=== PATIENT | female | born 1955 | race Caucasian/White ===

== ENCOUNTER 2017-03-04 19:16 | Inpatient (IN) ==
[2017-03-04] MEDS ORDERED: ONDANSETRON 4 MG/2 ML VIAL IV STA (19:37)
[2017-03-04] MEDS ORDERED: ALBUTEROL NEB SOLN 5 MG/ML 20 ML/BOTTLE CONT NEB STA (19:37)
[2017-03-04] MEDS ORDERED: SODIUM CHLORIDE 0.9% 2,000 ML IV STA (19:37)
[2017-03-04] MEDS ORDERED: CALCIUM CHLORIDE 1,000 MG/10 ML SYRINGE IV STA (19:37)
--- NOTE | 2017-03-04 19:45 | Emergency Department Note ---
Arrival - Arrival Chief Complaint: Weakness ED Nursing Triage Note: Pt arrives via ems from [facility] for further eval of dehydration and elevated K+ level. Pt states that she had not feeling well for three days. Denies any pain or fever. Pt denies any complaints of pain at time of triage. Pt was treated at [facility] and given Kayexalate 30 Gm po prior to leaving. Mode of Arrival: Stretcher Limitations: Altered Mental Status Source: Old Records Reviewed Time Seen by Provider: 03/04/17 19:37 - History of Present Illness HPI Narrative: This 61-year-old white female presents on referral from [place] where she was found to be dehydrated and azotemic with elevated creatinine and potassium as well as significant disorientation. Currently the patient is oriented only to person and place. She cannot give any cognizant history. By old records she does have a history of lung cancer with a right lung transplant as well as various other GI diseases including diverticulosis, pancreatitis, and GERD. Currently she appears in no acute medical distress. Onset (ago): day(s) (Patient presents several days post onset of symptoms.) Date of Last Menstrual Period: hyster Allergies/Adverse Reactions: Allergies Allergy/AdvReac Type Severity Reaction Status Date / Time Buspirone [From BuSpar] Allergy HIVES Verified 09/21/15 11:21 carisoprodol [From Soma] Allergy HIVES Verified 09/21/15 11:21 metoclopramide [From Reglan] Allergy HIVES Verified 09/21/15 11:21 morphine Allergy HIVES Verified 09/21/15 11:21 nalbuphine [From Nubain] Allergy HIVES Verified 09/21/15 11:21 Sulfa (Sulfonamide Allergy Swelling Verified 09/21/15 11:21 Antibiotics) of Lip/Tongue/Throat sumatriptan [From Imitrex] Allergy SHORTNESS Verified 09/21/15 11:21 OF BREATH vancomycin Allergy Unknown/Unable Verified 09/21/15 11:21 to obtain Home Medications: Home Medications Medication Instructions Recorded Confirmed Type Alendronate [Fosamax] 70 mg PO Q7DAY@0730 09/21/15 03/04/17 History Budesonide/Formoterol 160-4.5 2 puff INH BID 09/21/15 03/04/17 History [Symbicort 160-4.5] Esomeprazole Magnesium [Nexium] 40 mg PO DAILY 09/21/15 03/04/17 History LORazepam TAB [Ativan Tab] 2 mg PO DAILY 09/21/15 03/04/17 History Lisinopril 20 mg PO DAILY 09/21/15 03/04/17 History Pravastatin [Pravachol] 40 mg PO DAILY 09/21/15 03/04/17 History Tacrolimus Cap [Prograf Cap] 2 mg PO BID 09/21/15 03/04/17 History azaTHIOprine [Imuran] 100 mg PO DAILY 09/21/15 03/04/17 History predniSONE TAB [PredniSONE] 5 mg PO DAILY 09/22/15 03/04/17 History Amoxicillin/Clav Tab [Augmentin 500 mg PO BID #14 tablet 09/23/15 03/04/17 Rx Tab] Fluconazole Tab [Diflucan Tab] 100 mg PO DAILY #14 tablet 09/30/15 03/04/17 Rx Nystatin [Nystatin Oral Susp] 200,000 unit SWISH/SWAL QID #200 ml 09/30/1503/04 Rx Potassium Chloride Cap/Tab [K Dur] 20 meq PO DAILY #7 tablet 09/30/15 03/04/17 Rx Review of System - Review of System ROS unobtainable: due to mental status Medical,Surgical,& Family Hx - Medical History Cardio: History of: Hypertension HEENT: History of: HEENT Problems (sinus problems) Endocrine: History of: Dyslipidemia Respiratory: History of: Lung Cancer (right side), Respiratory Problems (right lung transplant) Gastrointestinal: History of: Diverticulitis/ Diverticulosis, GERD, Pancreatitis , Polyps, GI Problems (recent pancreatitis, also pancreatitis) Other: History of: Miscellaneous Medical Problems (melanoma LLE) - Surgical History Abdominal Surgeries: Surgical HX of: Cholecystectomy Reproductive Surgeries: Surgical HX of;: Hysterectomy - Family History Family History: Reports;: Family Cancer (mother), Family Hypertension (father, mother), Family Stroke (father) - Social History Smoking Status: Never smoker Frequency of Alcohol Use: None Type of Drug Use: None Exam Physical Examination: GENERAL: Well developed, well nourished elderly white female in no acute distress. HEENT: Normocephalic. No trauma. Moist mucous membranes. EOMI. PERRLA. ENT NML NECK: Supple. No adenopathy. CARDIAC: Regular. No murmurs. Heart rate 92 CHEST: Clear to auscultation. No respiratory distress. O2 sat 100% ABDOMEN: Soft. Nontender. Active bowel sounds. EXTREMITIES: No trauma. Normal ROM. No pedal edema. SKIN: No diaphoresis. No rash. NEURO: Alert. Motor, sensory, vibratory intact. Oriented only to person and place. No focal deficits. Vital Signs: Vital Signs Temperature 98.6 F 03/04/17 19:16 Pulse Rate 92 H 03/04/17 19:16 Respiratory Rate 18 03/04/17 19:16 Blood Pressure 112/82 03/04/17 19:16 O2 Sat by Pulse Oximetry 100 03/04/17 19:16 Course - Consultations Consultation #1: Discussed with hospitalist service who will admit for further evaluation treatment. Results - Labs Labs: Laboratory per [place]: White blood count 7000, hematocrit 39.6, BUN 59, creatinine 3.2, potassium 6.1, bicarbonate 22, troponin 0.019, urinalysis consistent with early cystitis - Impressions EKG: Per [place] sinus rhythm at 83 with normal AK interval and QRS duration. Nonspecific ST changes without marked T-wave peaking. No acute injury pattern noted. - Diagnostic Findings Procedure: CT: image reviewed by me, report reviewed by me (CT head per [place] is a normal head CT) Disposition Clinical Impression: Altered mental status, Acute renal insufficiency, Hyperkalemia Disposition: Still a Patient Time of Disposition: 19:47
[2017-03-04] MEDS ORDERED: CALCIUM CHLORIDE 1,000 MG/10 ML SYRINGE IV ONE (19:47)
[2017-03-04] MEDS ORDERED: ONDANSETRON 4 MG/2 ML VIAL ONE (19:47)
--- NOTE | 2017-03-04 20:19 | Hospitalist History & Physical ---
Assessment and Plan (1) Acute kidney injury Status: Acute (2) Hyperkalemia Status: Acute (3) Cirrhosis Status: Acute (4) Status post lung transplantation Status: Acute Assessment and plan: Our plan for this patient is hydration. We need to continue her antirejection drugs as appropriate. She was supposed to see Dr. Archuleta this week regarding her liver. Her mental status could be associated with the liver or could be associated with the acute kidney injury. We need to follow-up on labs in the morning and adjust plans appropriate. We will consult Dr. Archuleta History of Present Illness Chief complaint: Transfer from [place] History of present illness: Ms. Hale is a 61 year old female with past medical history significant for alpha-1 deficiency, lung transplant, pancreatitis, diverticulitis, cirrhosis and history of carcinoma who was in her normal state of health until the past 3- 4 days. Patient had a hernia repair at [facility] recently. It was noted that that time she was developing ascites. I recommended that she follow up with the GI doctor locally. She followed up with Dr. Archuleta and he put her on Aldactone 50 mg p.o. twice daily and Lasix 20 mg daily. She started taking these medications on February 13, 2017. Patient had been doing just fine on this regimen. But for the past 3-4 days she had been complaining about dizziness and off- balance. She was getting forgetful. She went to [place] and was found to be in dehydration with acute kidney injury. Patient really has a hard time eating secondary to bad indigestion and reactions to food. Daughter thought she was drinking enough fluid but apparently not. I was consulted to admit the patient to the emergency room. Home Medications Medication Instructions Recorded Confirmed Type Alendronate [Fosamax] 70 mg PO Q7DAY@0709/21/15 03/04/17 History Budesonide/Formoterol 160-4.5 2 puff INH BID 09/21/15 03/04/17 History [Symbicort 160-4.5] Esomeprazole Magnesium [Nexium] 40 mg PO DAILY 09/21/15 03/04/17 History LORazepam TAB [Ativan Tab] 2 mg PO DAILY 09/21/15 03/04/17 History Lisinopril 20 mg PO DAILY 09/21/15 03/04/17 History Pravastatin [Pravachol] 40 mg PO DAILY 09/21/15 03/04/17 History Tacrolimus Cap [Prograf Cap] 2 mg PO BID 09/21/15 03/04/17 History azaTHIOprine [Imuran] 100 mg PO DAILY 09/21/15 03/04/17 History predniSONE TAB [PredniSONE] 5 mg PO DAILY 09/22/15 03/04/17 History Amoxicillin/Clav Tab [Augmentin 500 mg PO BID #14 tablet 09/23/15 03/04/17 Rx Tab] Fluconazole Tab [Diflucan Tab] 100 mg PO DAILY #14 tablet 09/30/15 03/04/17 Rx Nystatin [Nystatin Oral Susp] 200,000 unit SWISH/SWAL QID #200 ml 09/30/1503/04 Rx Potassium Chloride Cap/Tab [K Dur] 20 meq PO DAILY #7 tablet 09/30/15 03/04/17 Rx Allergies Allergy/AdvReac Type Severity Reaction Status Date / Time Buspirone [From BuSpar] Allergy HIVES Verified 09/21/15 11:21 carisoprodol [From Soma] Allergy HIVES Verified 09/21/15 11:21 metoclopramide [From Reglan] Allergy HIVES Verified 09/21/15 11:21 morphine Allergy HIVES Verified 09/21/15 11:21 nalbuphine [From Nubain] Allergy HIVES Verified 09/21/15 11:21 ondansetron Allergy RASH Verified 03/04/17 19:54 [From Zofran (as hydrochloride)] Sulfa (Sulfonamide Allergy Swelling Verified 09/21/15 11:21 Antibiotics) of Lip/Tongue/Throat sumatriptan [From Imitrex] Allergy SHORTNESS Verified 09/21/15 11:21 OF BREATH vancomycin Allergy Unknown/Unable Verified 09/21/15 11:21 to obtain Medical,Surgical,& Family Hx - Medical History Cardio: History of: Hypertension HEENT: History of: HEENT Problems (sinus problems) Endocrine: History of: Dyslipidemia Respiratory: History of: Lung Cancer (right side), Respiratory Problems (right lung transplant) Gastrointestinal: History of: Diverticulitis/ Diverticulosis, GERD, Pancreatitis , Polyps, GI Problems (recent pancreatitis, also pancreatitis) Other: History of: Miscellaneous Medical Problems (melanoma LLE) - Surgical History Abdominal Surgeries: Surgical HX of: Cholecystectomy Reproductive Surgeries: Surgical HX of;: Hysterectomy Additional Surgical History: Lung transplant - Family History Family History: Reports;: Family Cancer (mother), Family Hypertension (father, mother), Family Stroke (father) - Social History Smoking Status: Never smoker Frequency of Alcohol Use: None Type of Drug Use: None ROS unobtainable: due to delirium Exam - Constitutional Vitals: Period Temp Pulse Resp BP Sys/Aguilera Pulse Ox Last 24 Hr 98.6 F-98.6 F 86-92 18-27 96-112/73-82 98-100 General appearance: under weight - Head Head exam: Present: normal inspection - Eye Eye exam: Present: EOMI Pupils: Present: RUKHSANA - ENT ENT exam: Present: normal exam - Neck Neck exam: Present: normal inspection - Respiratory Respiratory exam: Present: clear to auscultation bilaterally - Cardiovascular Cardiovascular exam: Present: regular rate and rhythm - GI/Abdominal GI/Abdominal exam: Present: normal bowel sounds - Extremities Exam Extremities exam: Present: normal inspection - Back Exam Back exam: Present: normal inspection - Neurological Exam Neurological exam: Present: alert, other (Patient is only alert to person and place) - Psychiatric Psychiatric exam: Present: normal affect - Skin Skin exam: Present: normal color Results - Labs Labs: Labs from outside facility glucose 199 BUN 59 serum creatinine 3.2 calcium 9.5 serum sodium 141 potassium 6.1 chloride 107 bicarb 22 CK 40 total protein 7.3 albumin 4.0 total bili 1.3 alk phos 114 ALT 20 AST 23 MMB 2.8 myoglobin 80 magnesium 1.9 leukocytes 1+ trace bacteria CT scan of head was negative
[2017-03-04] MEDS ORDERED: ACETAMINOPHEN 325 MG TABLET PO PRN (20:25)
[2017-03-04] MEDS ORDERED: GLUCAGON 1 MG VIAL IM PRN ×2 (20:25→20:30)
[2017-03-04] MEDS ORDERED: DEXTROSE 50% 25 GM/50 ML VIAL IV PRN ×2 (20:25→20:30)
[2017-03-04] MEDS: AMOXICILLIN/CLAV 500 MG TABLET PO SCH (23:34)
[2017-03-04] MEDS: INSULIN REGULAR 100 UNIT/ML SUBCUT SCH (23:35)
[2017-03-04] MEDS: BUDESONIDE/FORMOTEROL 160-4.5 INHALER 6 GM INH SCH (23:35)
[2017-03-04] MEDS: NYSTATIN 500,000 UNIT/5 ML UDCUP SWISH/SWAL SCH (23:35)
[2017-03-05 06:51] LABS: Basophils % 0.3 % (0.0-0.8); Eosinophils # 0.1 10*3/uL (0.0-0.87); Hematocrit 29.8 VOL% (35.7-47.0); Immature Granulocytes % 0.5 %; Immature Granulocytes Absolute 0.03 #; Lymphocytes # 1.4 10*3/uL (1.4-4.0); Lymphocytes % 21.4 % (21.3-54.2); Mean Corpuscular HGB Conc 33.6 GM/DL (32-36); Mean Corpuscular Hemoglobin 30 PG (27-34); Mean Corpuscular Volume 89.5 FL (87-102); Monocytes # 0.5 10*3/uL (0.11-0.8); Monocytes % 7.6 % (1.7-12.7); Neutrophils # 4.4 10*3/uL (1.4-7.4); Neutrophils % 68.2 % (38.7-73.9); Red Blood Count 3.33 MC/CUMM (3.8-5.5); Red Cell Distribution Width 14.2 % (9.3-17.3); White Blood Count 6.4 T/CUMM (4-12)
[2017-03-05 07:01] LABS: Platelet Count 85 T/CUMM (130-400)
[2017-03-05 07:11] LABS: Hypochromasia Slight; Ovalocytes Slight; Platelet Estimate Decreased
[2017-03-05 07:12] LABS: Macrocytosis Slight
[2017-03-05 07:47] LABS: Albumin 2.9 G/DL (3.4-5.0); Bilirubin,Total 1.1 MG/DL (0.2-1.0); Calcium 8.1 MG/DL (8.5-10.1); Osmolality,Calculated 300.1 MOS/KG (273-304); Potassium 4.4 MMOL/L (3.5-5.1); Total Protein 5.4 G/DL (6.4-8.3)
--- NOTE | 2017-03-05 08:13 | Physician Query Form ---
CLICK EDIT DOCUMENT TO SELECT QUERY ANSWER --> OK --> SIGN Opal Borden RN, CCDS Certified Clinical Retort Pre Cooker W) [phone] (f) [phone] [email or web address] PROVIDERS: Make your selection(s) from the choices in EACH section by typing an "x" and enter comments in the comment section. Please use your independent medical judgment in providing your response. This request does not imply that any particular answer is desired or expected. CLINICAL INDICATORS: (Providers should not edit this section) The medical record indicates that the patient was admitted with DAWIT, AMS, "getting forgetful", in ER "Currently the patient is oriented only to person and place", "cannot give any cognizant history" AND the patient had a negative CT of the head done. ACUITY: ( x) Acute ( ) Acute on Chronic ( ) Chronic ( ) Clinically unable to determine NATURE: ( x) Delirium due to general medical condition ( ) Dementia ( ) Encephalopathy ( ) Metabolic encephalopathy ( ) Unconscious ( ) Transient level of awareness ( ) Comatose ( ) Locked-in State ( ) Persistent Vegetative State ( ) Other, please specify: ( ) Clinically unable to determine Please indicate the underlying cause of the altered mental status (CHECK ALL THAT APPLY): ( ) Baseline dementia ( ) Alzheimer's disease ( ) Parkinson's disease ( ) Lewy body dementia ( ) Acute stroke ( ) Late effect of stroke ( ) Reactive (from emotional stress, psychological trauma) ( ) Due to narcotics/other drugs ( ) Post procedural delirium ( ) Transient ischemic attack ( ) Generalized cerebral edema ( ) Normal pressure hydrocephalus ( ) Psychiatric illness ( ) Other, please specify: ( ) Clinically unable to determine Please indicate if there is an infection, sepsis, dehydration or specific organ failure that is causing the dementia. Be specific with clarifying the relationship between that process and the mental status change. COMMENTS: PLEASE ALSO DOCUMENT RESPONSE IN PROGRESS NOTES AND/OR DISCHARGE SUMMARY Use of terms such as suspected, likely, or probable (associated with a specific diagnosis that is being evaluated, monitored, or treated as if it exists) are acceptable and can be restated in the discharge summary if not ruled out. MTDD
--- NOTE | 2017-03-05 08:57 | Gastrointestinal Consult Note ---
<Sofy Dawson - Last Filed: 03/05/17 13:09> Assessment and Plan (1) Elevated liver enzymes Status: Acute Assessment and plan: 03/05-Hx of lung transplant with alpha 1 deficiency with recent findings of ascites and questionable liver disease. Elevated bilirubin at 1.1. Hx of biliary pancreatitis in the past with dilated pancreatic duct in past w/o repeat MRI/CT noted. Recent paracentesis with 1 liter removed during hernia repair. Obtain hepatitis panel, ammonia level, liver biopsy in the morning. Plan and addendum to follow by Dr Archuleta. Current Visit: Yes History of Present Illness Chief complaint: Altered mental status History of present illness: Ms. Hale is a 61 year old female who presented to the hospital with altered mental status. Patient's daughter is at bedside and provides history due to patient is a poor historian at this time although she is more alert and oriented at this time than initial onset. Information also obtained from chart review. Patient was in her usual state of health until approximately 3 days ago. Patient's daughter states that Saturday she was visiting with her her mother and knows during conversation that she was somewhat disoriented. She also noticed that she was somewhat unbalanced and having complaints of dizziness. She states that her mother could not remember specific things such as birthdays. She did not feel well through the weekend with some reports of weakness so on yesterday patient's daughter contacted Dr. Archuleta's office regarding her Aldactone after reading side effects of confusion. They were instructed to hold the medication and follow with Dr. Archuleta on tomorrow. Patient became progressively more confused therefore her daughter brought her in for further evaluation. Patient has a history of lung cancer with right lung transplant as well as alpha 1 deficiency. She recently had a hernia repair at [facility] in January of this year which patient's daughter states they also removed a liter of ascitic fluid at that time. They did not began liver workup following these findings per patient's daughter and was told to return in April of this year for follow-up. Patient saw Dr. Archuleta recently and had an initial workup began. Pt has a history of Hepatitis B in 1989. She has no prior history of known liver disease. She has no history of alcohol or tobacco use. Patient's daughter denies any recent weight loss with her mother. She underwent a cholecystectomy in 2014 after presenting with biliary pancreatitis. She was found on admission to have dehydration as well as hyperkalemia with potassium of 6.7 at [facility] prior to transfer. She was given Kayexalate and dextrose and transferred to our facility. Potassium is now down to 4.4. LFTs are unremarkable other than a mildly elevated bilirubin at 1.1. She is afebrile. Denies any recent weight loss. Denies any nausea, vomiting or abdominal pain. Patient is noted to have orders for sliding scale insulin and on a diabetic diet however patient's daughter denies history of diabetes in her mother. Home Medications Medication Instructions Recorded Confirmed Type Alendronate [Fosamax] 70 mg PO Q7DAY@0730 09/21/15 03/04/17 History Esomeprazole Magnesium [Nexium] 40 mg PO DAILY 09/21/15 03/04/17 History LORazepam TAB [Ativan Tab] 1 mg PO TID 09/21/15 03/04/17 History Lisinopril 20 mg PO DAILY 09/21/15 03/04/17 History Pravastatin [Pravachol] 40 mg PO DAILY 09/21/15 03/04/17 History Tacrolimus Cap [Prograf Cap] 1 mg PO DAILY W/BREAKFAST 09/21/15 03/04/17 History azaTHIOprine [Imuran] 25 mg PO BEDTIME 09/21/15 03/04/17 History predniSONE TAB [PredniSONE] 5 mg PO DAILY 09/22/15 03/04/17 History Budesonide/Formoterol 160-4.5 2 puffs INH BID 03/04/17 03/04/17 History [Symbicort 160-4.5] Tacrolimus [Prograf] 0.5 mg PO BEDTIME 03/04/17 03/04/17 History Allergies Allergy/AdvReac Type Severity Reaction Status Date / Time Buspirone [From BuSpar] Allergy HIVES Verified 09/21/15 11:21 carisoprodol [From Soma] Allergy HIVES Verified 09/21/15 11:21 metoclopramide [From Reglan] Allergy HIVES Verified 09/21/15 11:21 morphine Allergy HIVES Verified 09/21/15 11:21 nalbuphine [From Nubain] Allergy HIVES Verified 09/21/15 11:21 ondansetron Allergy RASH Verified 03/04/17 19:54 [From Zofran (as hydrochloride)] Sulfa (Sulfonamide Allergy Swelling Verified 09/21/15 11:21 Antibiotics) of Lip/Tongue/Throat sumatriptan [From Imitrex] Allergy SHORTNESS Verified 09/21/15 11:21 OF BREATH vancomycin Allergy Unknown/Unable Verified 09/21/15 11:21 to obtain Medical,Surgical,& Family Hx - Medical History Cardio: History of: Hypertension Psychological: No history of: Anxiety Disorders, ADHD, Behavior Problems, Bipolar Disorder, Depression, Previous Suicide Attempt, Psychiatric/Substance Abuse Tx, Schizophrenia, Violent Behavior, Psychiatric Problems HEENT: History of: HEENT Problems (sinus problems) Endocrine: History of: Dyslipidemia Respiratory: History of: Lung Cancer (right side), Respiratory Problems (right lung transplant) Gastrointestinal: History of: Diverticulitis/ Diverticulosis, GERD, Pancreatitis , Polyps, GI Problems (recent pancreatitis, also diverticulitis) Other: History of: Skin Problems (basal cell carcinoma under left eye and back of neck,), Miscellaneous Medical Problems (melanoma LLE) - Surgical History Abdominal Surgeries: Surgical HX of: Cholecystectomy Reproductive Surgeries: Surgical HX of;: Breast Surgery (right breast biopsy), Hysterectomy, Tubal Ligation - Family History Family History: Reports;: Family Cancer (mother), Family Hypertension (father, mother), Family Stroke (father) - Social History Smoking Status: Never smoker Frequency of Alcohol Use: None Type of Drug Use: None ROS unobtainable: due to mental status Exam - Constitutional Vitals: Period Temp Pulse Resp BP Sys/Aguilera Pulse Ox Last 24 Hr 97.7 F-98.6 F 93-101 18-20 87-101/51-80 98-99 General appearance: normal weight, no acute distress - Head Head exam: Present: normal inspection, normocephalic - Eye Eye exam: Present: other (Lids and conjunctive are unremarkable). Absent: scleral icterus - ENT ENT exam: Present: normal exam, normal oropharynx - Neck Neck exam: Present: normal inspection - Respiratory Respiratory exam: Present: clear to auscultation bilaterally. Absent: rales, rhonchi, wheezes - Cardiovascular Cardiovascular exam: Present: regular rate and rhythm. Absent: diastolic murmur , JVD, systolic murmur - GI/Abdominal GI/Abdominal exam: Present: normal bowel sounds, soft. Absent: ascites, distended, mass, organomegaly, tenderness - Extremities Exam Extremities exam: Present: normal inspection, full ROM - Back Exam Back exam: Present: normal inspection - Neurological Exam Neurological exam: Present: alert, oriented X3 - Psychiatric Psychiatric exam: Present: normal affect, normal mood - Skin Skin exam: Present: normal color, warm, dry Results - Labs CBC & BMP: 03/05/17 05:25 03/05/17 05:25 Lab Results: I have reviewed the past 24 hour labs <Aaron Archuleta - Last Filed: 03/05/17 22:48> History of Present Illness History of present illness: Ms. Hale is a 61 year old female Exam - Constitutional Vitals: Period Temp Pulse Resp BP Sys/Aguilera Pulse Ox Last 24 Hr 96.4 F-98.6 F 97-128 18-20 71-101/47-72 96-99 Results - Labs CBC & BMP: 03/05/17 05:25 03/05/17 05:25
[2017-03-05] MEDS ORDERED: azaTHIOprine 50 MG TABLET PO SCH ×2 (09:00)
[2017-03-05] MEDS ORDERED: LORazepam 1 MG TABLET PO SCH (09:00)
[2017-03-05] MEDS ORDERED: PANTOPRAZOLE 40 MG TABLET PO SCH (09:00)
[2017-03-05] MEDS ORDERED: PRAVASTATIN 40 MG TABLET PO SCH (09:00)
[2017-03-05] MEDS ORDERED: predniSONE 5 MG TABLET PO SCH (09:00)
--- NOTE | 2017-03-05 09:25 | Ultrasound Report ---
US renal Bilateral Indication: Increased creatinine. Comparison: CT abdomen pelvis dated September 28, 2015. Technique: Multiple longitudinal and transverse real-time sonographic images of the kidneys are obtained. Findings: The right kidney measures 8.2 cm, and the left kidney measures 8.3 cm. There is no evidence of hydronephrosis. Renal parenchyma is echogenic bilaterally consistent with medical renal disease. Cortical thinning noted bilaterally. 1.2 cm cyst within the superior pole of the left kidney. IMPRESSION: Medical renal disease/renal atrophy without evidence of hydronephrosis. Small left renal cyst. PROCEDURE INTERPRETED AT [facility] DEPARTMENT OF RADIOLOGY Final Report Signed by: Dr Demarcus Lara
[2017-03-05] MEDS: BUDESONIDE/FORMOTEROL 160-4.5 INHALER 6 GM INH SCH ×2 (10:12→21:25)
[2017-03-05] MEDS: AMOXICILLIN/CLAV 500 MG TABLET PO SCH ×2 (10:14→21:22)
[2017-03-05] MEDS: NYSTATIN 500,000 UNIT/5 ML UDCUP SWISH/SWAL SCH ×4 (10:14→21:27)
[2017-03-05] MEDS: FLUCONAZOLE 100 MG TABLET PO SCH (10:15)
[2017-03-05] MEDS: predniSONE 5 MG TABLET PO SCH (10:15)
[2017-03-05] MEDS: PRAVASTATIN 40 MG TABLET PO SCH (10:15)
[2017-03-05] MEDS: LORazepam 1 MG TABLET PO SCH ×4 (10:16→21:23)
[2017-03-05] MEDS: SODIUM CHLORIDE 0.45% 1,000 ML IV SCH ×3 (12:18→15:42)
[2017-03-05] MEDS: TACROLIMUS 0.5 MG CAPSULE PO SCH ×2 (12:22→21:24)
--- NOTE | 2017-03-05 12:43 | Hospitalist Progress Note ---
Assessment and Plan (1) Status post lung transplantation Status: Acute Assessment and plan: Continue anti-rejection medications up as there. Current Visit: No (2) Acute kidney injury Status: Acute Assessment and plan: Patient has had ultrasound of the kidney done. Nephrology consultation is on board. Repeat a BMP and magnesium in the morning Current Visit: Yes Hospitalist: Subjective Interval history: Patient has been seen interviewed and examined and chart has been reviewed. Patient was admitted yesterday for loss of balance dehydration and acute renal failure. This is on the background of use of Aldactone 50 mg twice a day for management of subacute ascites. Patient does have history of acute bursitis which is been treated with abduction following repair of a hernia at [facility]. She also has a history of alpha1- antitrypsin deficiency, lung transplant, history of malignancy and history of diverticulitis. Exam - Constitutional Vitals: Period Temp Pulse Resp BP Sys/Aguilera Pulse Ox Last 24 Hr 96.4 F-98.6 F 93-128 18-20 71-101/47-80 96-99 General appearance: under weight - Head Head exam: Present: normocephalic, atraumatic - Eye Eye exam: Present: EOMI Pupils: Present: RUKHSANA - ENT ENT exam: Present: normal exam - Neck Neck exam: Present: normal inspection, other (Supple neck no JVD no adenopathy) - Respiratory Respiratory exam: Present: clear to auscultation bilaterally - Cardiovascular Cardiovascular exam: Present: regular rate and rhythm - GI/Abdominal GI/Abdominal exam: Present: normal bowel sounds - Extremities Exam Extremities exam: Present: full ROM - Back Exam Back exam: Present: normal inspection - Neurological Exam Neurological exam: Present: alert, oriented X3, CN II-XII intact - Psychiatric Psychiatric exam: Present: normal affect, normal mood - Skin Skin exam: Present: normal color, warm, dry Results - Labs CBC & BMP: 03/05/17 05:25 03/05/17 05:25 Lab Results: I have reviewed the past 24 hour labs (She just got back from ultrasound of the kidney)
[2017-03-05] MEDS: INSULIN REGULAR 100 UNIT/ML SUBCUT SCH ×3 (12:46→21:24)
[2017-03-05 14:42] LABS: INR 1.1; PT Patient Result 11.9 SECS
[2017-03-05 15:19] LABS: Hepatitis A Ab IgM Quant 0.06 Index; Hepatitis A Ab IgM Result Negative (Negative); Hepatitis B Core IgM Result Negative (Negative); Hepatitis B Surface Ag Quant < 0.10 Index; Hepatitis B Surface Ag Result Negative (Negative); Hepatitis C Virus Ab Quant 0.12 Index; Hepatitis C Virus Ab Result Negative (Negative)
[2017-03-05] MEDS: azaTHIOprine 50 MG TABLET PO SCH (21:24)
[2017-03-06] MEDS: SODIUM CHLORIDE 0.45% 1,000 ML IV SCH ×3 (02:36→23:19)
[2017-03-06 06:38] LABS: Basophils % 0.4 % (0.0-0.8); Eosinophils # 0.2 10*3/uL (0.0-0.87); Eosinophils % 3.4 % (0.00-10.9); Hematocrit 29.2 VOL% (35.7-47.0); Hemoglobin 9.6 GM/DL (12.0-16.0); Immature Granulocytes % 0.4 %; Immature Granulocytes Absolute 0.02 #; Lymphocytes % 19.4 % (21.3-54.2); Mean Corpuscular HGB Conc 32.9 GM/DL (32-36); Mean Corpuscular Hemoglobin 30 PG (27-34); Mean Corpuscular Volume 90.4 FL (87-102); Mean Platelet Volume 12.9 FL (9.6-12.0); Monocytes # 0.4 10*3/uL (0.11-0.8); Neutrophils # 3.7 10*3/uL (1.4-7.4); Neutrophils % 69.4 % (38.7-73.9); Platelet Count 72 T/CUMM (130-400); Red Blood Count 3.23 MC/CUMM (3.8-5.5); Red Cell Distribution Width 14.2 % (9.3-17.3); White Blood Count 5.3 T/CUMM (4-12)
[2017-03-06 07:02] LABS: Elliptocytes Few; Hypochromasia 1+; Platelet Estimate Decreased
[2017-03-06 07:14] LABS: Calcium 7.6 MG/DL (8.5-10.1); Magnesium 1.9 MG/DL (1.8-2.4); Potassium 4.8 MMOL/L (3.5-5.1)
[2017-03-06] MEDS ORDERED: LACTULOSE 20 GM/30 ML UDCUP PO PRN (08:07)
--- NOTE | 2017-03-06 08:44 | Gastrointestinal Progress Note ---
<NiharikaastonSofy Britta - Last Filed: 03/06/17 08:42> Assessment and Plan (1) Elevated liver enzymes Status: Acute Assessment and plan: 03/06-ammonia level elevated at 98. For liver biopsy today. Start lactulose therapy. Repeat ammonia level tomorrow. Plan an addendum to followed by Dr. Archuleta. 03/05-Hx of lung transplant with alpha 1 deficiency with recent findings of ascites and questionable liver disease. Elevated bilirubin at 1.1. Hx of biliary pancreatitis in the past with dilated pancreatic duct in past w/o repeat MRI/CT noted. Recent paracentesis with 1 liter removed during hernia repair. Obtain hepatitis panel, ammonia level, liver biopsy in the morning. Plan and addendum to follow by Dr Archuleta. Current Visit: Yes Gastroenterology - PN: Subj Interval history: CC: Elevated liver enzymes Patient is seen awake alert awaiting to go for liver biopsy this morning. States she had an uneventful night and she is returning to her baseline mental status. Denies any pain, nausea or vomiting. Ammonia level noted to return yesterday is 98. Hepatitis panel negative. Abdomen is soft, nontender. Will start lactulose today. ROS: Denies shortness of breath or chest pain Exam (Progress Note) - Constitutional Vitals: Period Temp Pulse Resp BP Sys/Aguilera Pulse Ox Last 24 Hr 96.4 F-99.4 F 66-128 18-20 71-94/47-65 96-99 General appearance: normal weight, no acute distress - Head Head exam: Present: normal inspection, normocephalic - Eye Eye exam: Present: other (Lids and conjunctivae unremarkable). Absent: scleral icterus - ENT ENT exam: Present: normal exam, normal oropharynx - Neck Neck exam: Present: normal inspection - Respiratory Respiratory exam: Present: clear to auscultation bilaterally. Absent: rales, rhonchi, wheezes - Cardiovascular Cardiovascular exam: Present: regular rate and rhythm. Absent: diastolic murmur , JVD, systolic murmur - GI/Abdominal GI/Abdominal exam: Present: normal bowel sounds, soft. Absent: ascites, distended, mass, organomegaly, tenderness - Extremities Exam Extremities exam: Present: normal inspection, full ROM - Back Exam Back exam: Present: normal inspection - Neurological Exam Neurological exam: Present: alert, oriented X3 - Psychiatric Psychiatric exam: Present: normal affect, normal mood - Skin Skin exam: Present: normal color, warm, dry Results - Labs CBC & BMP: 03/06/17 06:21 03/06/17 06:21 Lab Results: I have reviewed the past 24 hour labs <Aaron Archuleta - Last Filed: 03/07/17 10:40> Exam (Progress Note) - Constitutional Vitals: Period Temp Pulse Resp BP Sys/Aguilera Pulse Ox Last 24 Hr 97.3 F-98.8 F 69-90 18-22 94-129/56-94 97-100 Results - Labs CBC & BMP: 03/06/17 06:21 03/07/17 06:59
[2017-03-06] MEDS ORDERED: DIAZEPAM 5 MG TABLET PO ONE (09:17)
[2017-03-06] MEDS: AMOXICILLIN/CLAV 500 MG TABLET PO SCH ×2 (10:26→20:38)
[2017-03-06] MEDS: NYSTATIN 500,000 UNIT/5 ML UDCUP SWISH/SWAL SCH ×5 (10:26→20:37)
[2017-03-06] MEDS: FLUCONAZOLE 100 MG TABLET PO SCH (10:26)
[2017-03-06] MEDS: PRAVASTATIN 40 MG TABLET PO SCH (10:56)
[2017-03-06] MEDS: LORazepam 1 MG TABLET PO SCH ×3 (10:56→20:46)
[2017-03-06] MEDS: INSULIN REGULAR 100 UNIT/ML SUBCUT SCH ×4 (10:56→23:20)
[2017-03-06] MEDS: BUDESONIDE/FORMOTEROL 160-4.5 INHALER 6 GM INH SCH ×2 (10:57→20:46)
[2017-03-06] MEDS: predniSONE 5 MG TABLET PO SCH (10:57)
[2017-03-06] MEDS: TACROLIMUS 0.5 MG CAPSULE PO SCH ×2 (10:57→20:46)
[2017-03-06 11:35] LABS: Apearance,Urine CLEAR (Clear); Bilirubin,Urine Negative (Negative); Blood, Urine Negative (Negative); Glucose,Urine (UA) Negative (Negative); Ketones,Urine Negative (Negative); Nitrite,Urine Negative (Negative); Protein,Urine Negative; RBC,Urine 1 /HPF (0-4); Urine Color Straw (Yellow); Urine Specific Gravity 1.008 (1.001-1.035); Urine Urobilinogen < 2.0 EU/DL (0.2-1.0); WBC,Urine <1 /HPF (0-6)
--- NOTE | 2017-03-06 12:08 | History and Physical Update ---
Sedation H&P Update - History and Physical H&P was reviewed, the patient examined and there: are no changes in the patients condition since last H&P was completed. - Dictation Physical: refer to scanned H&P - Sedation Plan for Sedation: minimal Patient Consent: Procedure disscussed with patient and patinet has consented., Risks and benefits were discussed with patient,including infection,, bleeding, injury to surrounding structures, seizure, temporary nerve, Patient understands and accepts potential risks/benefits and agrees to, proceed. ASA Class: II Airway Assessment: Class II: Soft palate, uvula, fauces visible
--- NOTE | 2017-03-06 12:11 | Post Interventional Procedure ---
Pre-op diagnosis: History of hepatitis B. Possible cirrhosis. Abnormal liver function tests Post-op diagnosis: same Procedure: Ultrasound-guided liver biopsy Radiologist: Glory Yates Anesthesia: local Specimens: other (core samples sent to pathology) Complications: none Condition: stable Description/Findings: A formal timeout was performed. Patient was placed supine on the ultrasound table and paving bed maker imaging obtained. The ventral skin overlying the left lobe of the liver was prepped and draped in a sterile fashion. 5 cc 1% lidocaine was injected. Under ultrasound guidance, a 17-gauge guide needle was advanced into the lesion. Three 18-gauge core biopsies were obtained. Specimen was sent for routine pathology. Some Gelfoam pledgets were injected into the biopsy tract to aid with hemostasis. Some of the pledgets were noted to reflux into the superior perihepatic area. The needle was removed. Patient tolerated the procedure well. Impression: Ultrasound-guided core liver biopsy was performed Assessment and Plan - Time spent with patient Time spent with patient: Less than 30 minutes
--- NOTE | 2017-03-06 12:14 | Ultrasound Report ---
History: History of hepatitis B. Possible cirrhosis. Abnormal liver function tests Date: 03/06/2017 Study: Ultrasound-guided liver biopsy Comparison exam: Abdominal ultrasound 03/05/2017 Description: A formal timeout was performed. Patient was placed supine on the ultrasound table and instrumental musician imaging obtained. The ventral skin overlying the left lobe of the liver was prepped and draped in a sterile fashion. 5 cc 1% lidocaine was injected. Under ultrasound guidance, a 17-gauge guide needle was advanced into the lesion. Three 18-gauge core biopsies were obtained. Specimen was sent for routine pathology. Some Gelfoam pledgets were injected into the biopsy tract to aid with hemostasis. Some of the pledgets were noted to reflux into the superior perihepatic area. The needle was removed. Patient tolerated the procedure well. Impression: Ultrasound-guided core liver biopsy was performed. PROCEDURE INTERPRETED AT [facility] DEPARTMENT OF RADIOLOGY Final Report Signed by: Dr. Glory Yates
[2017-03-06] MEDS: LACTULOSE 20 GM/30 ML UDCUP PO SCH ×2 (14:12→20:38)
--- NOTE | 2017-03-06 15:17 | Hospitalist Progress Note ---
Assessment and Plan (1) Status post lung transplantation Status: Acute Assessment and plan: Continue anti-rejection medications up as there. Current Visit: No (2) Acute kidney injury Status: Acute Assessment and plan: Patient has had ultrasound of the kidney done. Nephrology consultation is on board. Repeat a BMP and magnesium in the morning Current Visit: Yes (3) Hyperammonemia Status: Acute Assessment and plan: Patient is started on large bolus 30 g p.o. 3 times daily. Repeat ammonia level in the morning. Her mentation is more with it today however. Current Visit: Yes (4) Cirrhosis Status: Acute Assessment and plan: This likely secondary to alpha-1 antitrypsin deficiency. Patient has a liver biopsy done today. Current Visit: No Hospitalist: Subjective Interval history: Patient has been seen interviewed and examined and chart has been reviewed. She is in the hospital following acute mental status change and found to have acute kidney injury. Patient does have cirrhosis most likely associated with her diagnosis of alpha-1 antitrypsin deficiency. She has a history of lung transplant history recent hernia repair and subsequent developed ascites. I informed her today that her ammonia level is very high. She is restarted on lactulose by gastroenterology consultants. Will follow her mentation. She is going for ultrasound-guided liver biopsy today. Please refer to gastroenterology notes for details on that Exam - Constitutional Vitals: Period Temp Pulse Resp BP Sys/Aguilera Pulse Ox Last 24 Hr 97.5 F-99.4 F 66-101 18-22 82-129/52-94 96-100 General appearance: under weight - Head Head exam: Present: normal inspection - Eye Eye exam: Present: EOMI Pupils: Present: RUKHSANA - ENT ENT exam: Present: normal exam - Neck Neck exam: Present: normal inspection - Respiratory Respiratory exam: Present: clear to auscultation bilaterally - Cardiovascular Cardiovascular exam: Present: regular rate and rhythm - GI/Abdominal GI/Abdominal exam: Present: normal bowel sounds, soft - Extremities Exam Extremities exam: Present: full ROM - Back Exam Back exam: Present: normal inspection - Neurological Exam Neurological exam: Present: alert, oriented X3, CN II-XII intact - Psychiatric Psychiatric exam: Present: normal affect, normal mood - Skin Skin exam: Present: normal color, warm, dry Results - Labs CBC & BMP: 03/06/17 06:03/06/17 06:21 Lab Results: I have reviewed the past 24 hour labs
[2017-03-06] MEDS: azaTHIOprine 50 MG TABLET PO SCH (20:46)
[2017-03-07] MEDS: LACTULOSE 20 GM/30 ML UDCUP PO SCH ×2 (02:00→09:41)
[2017-03-07 07:33] LABS: Calcium 7.4 MG/DL (8.5-10.1); Magnesium 1.8 MG/DL (1.8-2.4); Osmolality,Calculated 293.8 MOS/KG (273-304); Potassium 4.8 MMOL/L (3.5-5.1)
[2017-03-07 07:37] LABS: Albumin 2.6 G/DL (3.4-5.0); Bilirubin,Direct 0.3 MG/DL (0.0-0.20); Bilirubin,Indirect 0.9 MG/DL (0.0-1.0); Bilirubin,Total 1.2 MG/DL (0.2-1.0); Total Protein 4.8 G/DL (6.4-8.3)
[2017-03-07] MEDS: INSULIN REGULAR 100 UNIT/ML SUBCUT SCH ×2 (07:59→13:49)
[2017-03-07] MEDS: SODIUM CHLORIDE 0.45% 1,000 ML IV SCH (09:40)
[2017-03-07] MEDS: AMOXICILLIN/CLAV 500 MG TABLET PO SCH (09:41)
[2017-03-07] MEDS: LORazepam 1 MG TABLET PO SCH (09:41)
[2017-03-07] MEDS: FLUCONAZOLE 100 MG TABLET PO SCH (09:41)
[2017-03-07] MEDS: NYSTATIN 500,000 UNIT/5 ML UDCUP SWISH/SWAL SCH ×2 (09:42→13:49)
[2017-03-07] MEDS: TACROLIMUS 0.5 MG CAPSULE PO SCH (10:35)
[2017-03-07] MEDS: BUDESONIDE/FORMOTEROL 160-4.5 INHALER 6 GM INH SCH (10:35)
[2017-03-07] MEDS: predniSONE 5 MG TABLET PO SCH (10:35)
[2017-03-07] MEDS: PRAVASTATIN 40 MG TABLET PO SCH (10:35)
[2017-03-07 11:22] VITALS: BP 111/75
--- NOTE | 2017-03-07 12:20 | Gastrointestinal Progress Note ---
Addendum entered and electronically signed by Aaron Archuleta MD 03/07/17 10: 49: Original Note: <Sofy Dawson - Last Filed: 03/07/17 09:40> Assessment and Plan (1) Elevated liver enzymes Status: Acute Assessment and plan: 03/07-ammonia level 74. Liver biopsy pathology pending. Ammonia level down at 74. Plan an addendum to follow by Dr. Archuleta. 03/06-ammonia level elevated at 98. For liver biopsy today. Start lactulose therapy. Repeat ammonia level tomorrow. Plan an addendum to followed by Dr. Archuleta. 03/05-Hx of lung transplant with alpha 1 deficiency with recent findings of ascites and questionable liver disease. Elevated bilirubin at 1.1. Hx of biliary pancreatitis in the past with dilated pancreatic duct in past w/o repeat MRI/CT noted. Recent paracentesis with 1 liter removed during hernia repair. Obtain hepatitis panel, ammonia level, liver biopsy in the morning. Plan and addendum to follow by Dr Archuleta. Current Visit: Yes Gastroenterology - PN: Subj Interval history: CC: Elevated liver enzymes Patient is seen awake alert sitting up on side of bed. States she had an uneventful night. She is back to her baseline mental status per daughter who is also at bedside. She has had several bowel movement since initiation of lactulose on yesterday. Ammonia level is down at 74. Liver biopsy on yesterday with pathology report still pending. Bilirubin 1.2. Abdomen is soft , nontender. ROS: Denies shortness of breath or chest pain Exam (Progress Note) - Constitutional Vitals: Period Temp Pulse Resp BP Sys/Aguilera Pulse Ox Last 24 Hr 97.3 F-98.8 F 69-90 18-22 94-129/56-94 97-100 General appearance: normal weight, no acute distress - Head Head exam: Present: normal inspection, normocephalic - Eye Eye exam: Present: other (Lids and conjunctive are unremarkable). Absent: scleral icterus - ENT ENT exam: Present: normal exam, normal oropharynx - Neck Neck exam: Present: normal inspection - Respiratory Respiratory exam: Present: clear to auscultation bilaterally. Absent: rales, rhonchi, wheezes - Cardiovascular Cardiovascular exam: Present: regular rate and rhythm. Absent: diastolic murmur , JVD, systolic murmur - GI/Abdominal GI/Abdominal exam: Present: normal bowel sounds, soft. Absent: ascites, distended, mass, organomegaly, tenderness - Extremities Exam Extremities exam: Present: normal inspection, full ROM - Back Exam Back exam: Present: normal inspection - Neurological Exam Neurological exam: Present: alert, oriented X3 - Psychiatric Psychiatric exam: Present: normal affect, normal mood - Skin Skin exam: Present: normal color, warm, dry Results - Labs CBC & BMP: 03/06/17 06:21 03/07/17 06:59 Lab Results: I have reviewed the past 24 hour labs <Aaron Archuleta - Last Filed: 03/07/17 10:40> Exam (Progress Note) - Constitutional Vitals: Period Temp Pulse Resp BP Sys/A[place]ilera Pulse Ox Last 24 Hr 97.3 F-98.8 F 69-90 18-22 94-129/56-94 97-100 Results - Labs CBC & BMP: 03/06/17 06:21 03/07/17 06:59
--- NOTE | 2017-03-07 12:22 | Event Note ---
Patient seen and examined at 12:30 PM on March 06 unfortunately due to computer updates I could not offer cosign for a man her data. This is a late entry. Mental status has improved ammonia level was slightly elevated. She has undergone liver biopsy and await findings of this. No complaints of pain at this time continues on antibiotics for UTI. Abdomen soft nondistended nontender Agree with additional history physical findings per GI progress note authored by Sofy CRAWLEY on March 06.
--- NOTE | 2017-03-07 12:25 | Discharge Summary ---
Hospital Course - Hospital Course Hospital Course: Ms. Hale is a 61 year old female with a pmh of gerd, alpha-1 deficiency, lung transplant, pancreatitis, diverticulitis, cirrhosis and history of carcinoma that presented on referral from [facility] on 03/04 where she was found to be dehydrated and azotemic with elevated creatinine and potassium as well as significant disorientation. Pt. was admitted to the hospitalist program. Pt. received IV hydration for dehydration. Ammonia and other labs were drawn. GI was consulted to evaluate the patient for elevated liver enzymes. Altered mental status was thought to be secondary to UTI. Liver biopsy was ordered. Biopsy performed on 03/06. Pt's mental status improved and was cleared for discharge with follow up instructed. Diagnosis - Discharge Diagnosis (1) Status post lung transplantation Status: Acute (2) Acute kidney injury Status: Acute (3) Hyperammonemia Status: Acute (4) Cirrhosis Status: Acute Specialty Discharge - Follow Up or Referrals Follow up with: Aaron Archuleta MD [Physician] - (Appt March 14 at 2:00pm to discuss liver biopsy results.) Discharge Plan - Discharge Data Disposition: Disch To Home/Self Care Condition at Discharge: Stable Activity: resume usual activities as tolerated Hygiene: no restrictions Weight Bearing at Discharge: weight bear as tolerated Driving: not until seen by doctor Contact your physician if you experience:: Redness or swelling, Nausea/Vomiting , Shortness of breath, Bleeding - Discharge Medications New Budesonide/Formoterol 160-4.5 [Symbicort 160-4.5] 2 puff INH BID inhaler Lactulose Liquid [Chronulac] 20 gm PO Q6H #900 ml Continue Pravastatin [Pravachol] 40 mg PO DAILY Alendronate [Fosamax] 70 mg PO Q7DAY@0730 Lisinopril 20 mg PO DAILY Esomeprazole Magnesium [Nexium] 40 mg PO DAILY azaTHIOprine [Imuran] 25 mg PO BEDTIME LORazepam TAB [Ativan Tab] 1 mg PO TID Tacrolimus Cap [Prograf Cap] 1 mg PO DAILY W/BREAKFAST predniSONE TAB [PredniSONE] 5 mg PO DAILY Budesonide/Formoterol 160-4.5 [Symbicort 160-4.5] 2 puffs INH BID Tacrolimus [Prograf] 0.5 mg PO BEDTIME - Follow Up or Referral Follow Up: Aaron Archuleta MD [Physician] - (Appt March 14 at 2:00pm to discuss liver biopsy results.) - Forms/Instructions Instructions: Cirrhosis (DC), Acute Kidney Injury (DC) Exam - Constitutional Vitals: Period Temp Pulse Resp BP Sys/Aguilera Pulse Ox Last 24 Hr 97.3 F-98.8 F 69-83 18-20 94-111/56-75 97-99 General appearance: under weight - Head Head exam: Present: normocephalic, atraumatic - Eye Eye exam: Present: EOMI, other (Anicteric sclera) Pupils: Present: RUKHSANA - ENT ENT exam: Present: normal external ear exam - Neck Neck exam: Present: normal inspection - Respiratory Respiratory exam: Present: clear to auscultation bilaterally - Cardiovascular Cardiovascular exam: Present: regular rate and rhythm - GI/Abdominal GI/Abdominal exam: Present: normal bowel sounds, soft, other (Bandaging student noted on the mid epigastric patient had ultrasound-guided biopsy of the liver yesterday she is benign on examination today requesting to be discharged) - Extremities Exam Extremities exam: Present: full ROM - Back Exam Back exam: Present: normal inspection - Neurological Exam Neurological exam: Present: alert, oriented X3, CN II-XII intact - Psychiatric Psychiatric exam: Present: normal affect, normal mood - Skin Skin exam: Present: normal color, warm, dry Discharge Results Labs on day of discharge: Labs from last 24 hours 03/07/17 03/07/17 03/07/17 07:33 06:59 06:59 Sodium 144 Potassium 4.8 Chloride 117 H Carbon Dioxide 19 L Anion Gap 12.8 BUN 28 H Creatinine 1.70 H GFR Calculation 27 BUN/Creatinine Ratio 16.00 Glucose 131 H POC Glucose 102 Calculated Osmolality 293.8 Calcium 7.4 L Magnesium 1.8 Total Bilirubin 1.20 H Direct Bilirubin 0.30 H Indirect Bilirubin 0.9 AST 17 ALT 15 Alkaline Phosphatase 74 Ammonia 74 H Total Protein 4.8 L Albumin 2.6 L 03/06/17 03/06/17 22:13 15:59 Sodium Potassium Chloride Carbon Dioxide Anion Gap BUN Creatinine GFR Calculation BUN/Creatinine Ratio Glucose POC Glucose 192 H 184 H Calculated Osmolality Calcium Magnesium Total Bilirubin Direct Bilirubin Indirect Bilirubin AST ALT Alkaline Phosphatase Ammonia Total Protein Albumin DS: Provider Date of admission: 03/04/17 19:57 Primary care physician: . No PCP Attending physician on admission: Gautam Lee MD Consults: 03/04/17 20:28 Consult to Physician [CONS] Routine Comment: Consulting Provider: Aaron Archuleta Person Notified: aware Date Notified: 03/06/17 Time Notified: 11:32 Discharging clinician: Ed Gonzalez MD
[2017-03-08] MEDS ORDERED: NON-FORMULARY MEDICATION (Alendronate [Fosamax] 70 MG) PO SCH (07:30)
== END 2017-03-07 13:00 | disposition home or self-care (01) | DRG 683 ==
LOC: EDBD → EDUNIT# → N.ED 19:16 → N.EDINP 19:57 → SUATTDRO 19:57 → N.5E 20:47
PROVIDERS: ADMIT Internal Medicine; ATTEND Internal Medicine Infectious Disease